=== PATIENT | female | born 1965 | race African-American/Black ===

== ENCOUNTER 2018-09-15 09:59 | Day surgery (SDC) | payer OTHER ==
[~2018-09-15] VITALS: Ht 167.6 cm; Wt 105.3 kg
[~2018-09-15 09:59] MED LIST: ATORVASTATIN; HYDROCHLOROTHIAZIDE; LOSARTAN; OMEPRAZOLE
[2018-09-15 10:46] VITALS: Ht 167.6 cm; Wt 105.3 kg
[2018-09-15 11:03] VITALS: BP 112/83; PULSE 58; RESP 20
--- NOTE | 2018-09-15 11:18 | PREAC ---
Date/Time of Note Date/Time of Note DATE: 09/15/18 TIME: 11:16 Anesthesia Eval and Record Evaluation Time Pre-Procedure Interview DATE: 09/15/18 TIME: 11:16 Age 52 Sex female NPO: 8 hrs Preoperative diagnosis Colon screening Planned procedure Colonoscopy Past Medical History Past Medical History: Includes Cardio: HTN, Dyslipidemia GI: GERD, Morbid obesity Surgery & Anesthesia Issues No known issue Meds Anticoagulation: Yes Beta Segundo within 24 hr: Yes Reported Medications [Omeprazole] No Conflict Check 09/15/18 [Atorvastatin] No Conflict Check 09/15/18 [Hydrochlorothiazide] No Conflict Check 09/15/18 [Losartan] No Conflict Check 09/15/18 Meds reviewed: Yes Allergies Allergies Reviewed: Yes Labs/Studies Labs Reviewed: Reviewed by anesthesiologist test: N/A Studies: ECG Pre-procedure Exam Last vitals Vital Signs Date Temp Pulse Resp B/P (MAP) Pulse Ox O2 O2 Flow FiO2 Time Delivery Rate 09/15/18 98.1 58 20 112/83 99 Room Air 11:03 (93) Airway: Adequate mouth opening, Adequate thyromental dist Mallampati: Mallampati II Teeth: Normal Lung: Normal Heart: Normal ASA Physical Status ASA physical status: 3 Emergency: None Planned Anesthetic General/MAC: MAC Planned Pain Management Parenteral pain med Pre-operative Attestations Prior to commencing anesthesia and surgery, the patient was re-evaluated, there was verification of: *The patient's identity *The results of appropriate recent lab work and preoperative vital signs *The above evaluation not changing prior to induction *Anesthetic plan, risk benefits, alternative and complications discussed with patient/family; questions answered; patient/family understands, accepts and wishes to proceed. MCKAY SARAVIA MD Sep 15, 2018 11:18
[2018-09-15] MEDS ORDERED: PROPOFOL 40 ML ONE (11:20)
[2018-09-15] MEDS ORDERED: PROPOFOL 200 MG INJ ONE (11:20)
[2018-09-15] MEDS ORDERED: LIDOCAINE 2% (SDV) 5 ML INJ ONE (11:20)
[2018-09-15 12:19] VITALS: BP 121/86; PULSE 64; RESP 16
--- NOTE | 2018-09-15 13:13 | PAC ---
Date/Time of Note Date/Time of Note DATE: 09/15/18 TIME: 13:13 Post-Anesthesia Notes Post-Anesthesia Note Last documented vital signs Vital Signs Date Temp Pulse Resp B/P (MAP) Pulse Ox O2 O2 Flow FiO2 Time Delivery Rate 09/15/18 98.1 58 20 112/83 99 Room Air 11:03 (93) Activity: WNL Respiratory function: WNL Cardiovascular function: WNL Mental status: Baseline Pain reasonably controlled: Yes Hydration appropriate: Yes Nausea/Vomiting absent: Yes Comments BP:122/76, P:78, Spo2:100%, T:98,8 MCKAY SARAVIA MD Sep 15, 2018 13:13
== END 2018-09-15 14:20 | disposition home or self-care (01) ==
LOC: GIL 09:59
PROVIDERS: ATTEND Internal Medicine Gastroenterology
DX: Z12.11 Encounter for screening for malignant neoplasm of colon (principal); K64.8 Other hemorrhoids; K63.89 Other specified diseases of intestine; I10 Essential (primary) hypertension; E78.5 Hyperlipidemia, unspecified